=== PATIENT | female | born 1985 | race Caucasian/White ===

== ENCOUNTER → 2018-09-25 | Outpatient (CLI) | payer OTHER ==
[~2018-09-25] MED LIST: NORCO 5-325 TA1 EACH PO
== END | disposition home or self-care (01) ==
LOC: US 09:55
DX: K81.0 Acute cholecystitis (principal); R10.11 Right upper quadrant pain

== ENCOUNTER → 2018-10-12 | Day surgery (SDC) | payer OTHER ==
[2018-10-02 09:51] VITALS: BP 134/87
[2018-10-04 11:54] LABS: BASO # 0.1 10*3/uL (0.0-0.1); BASO % 0.7 % (0.0-1.0); EOS # 0.2 10*3/uL (0.0-0.4); EOS % 1.7 % (1.0-4.0); LYMPH # 3.4 10*3/uL (1.3-4.4); MEAN CELL VOLUME 89.4 fl (81.0-99.0); MEAN CORPUSCULAR HGB 29.1 pg (27.0-31.0); MEAN CORPUSCULAR HGB CONC 32.6 g/dl (33.0-37.0); MEAN PLATELET VOLUME 11.1 fl (9.6-12.3); MONO # 0.6 10*3/uL (0.1-1.0); MONO % 5.1 % (3.0-9.0); NEUT # 7.3 10*3/uL (2.3-7.9); NEUT % 63.2 % (47.0-73.0); PLATELET COUNT AUTOMATED 304 10*3/uL (130-400); RED BLOOD COUNT 4.81 10*6/uL (4.10-5.10); WHITE BLOOD COUNT 11.6 10*3/uL (4.8-10.8)
[2018-10-04 12:13] LABS: BILIRUBIN NEGATIVE (NEGATIVE); BLOOD NEGATIVE (NEGATIVE); CLARITY CLOUDY (CLEAR); COLOR YELLOW (YELLOW); GLUCOSE NEGATIVE (NEGATIVE); KETONE NEGATIVE (NEGATIVE); LEUKO ESTERASE TRACE (NEGATIVE); NITRITE POSITIVE (NEGATIVE); SPECIFIC GRAVITY 1.025 (1.005-1.030); UROBILINOGEN 0.2 E.U./dl (0.2-1.0)
[2018-10-04 12:27] LABS: ALBUMIN 3.7 gm/dl (3.1-4.5); ALKALINE PHOSPHATASE 120 U/L (45-117); BILIRUBIN, DIRECT 0.1 mg/dL (0.0-0.2); BUN 17 mg/dl (7-24); CHLORIDE 103 mmol/L (98-107); CREATININE 0.69 mg/dL (0.55-1.02); POTASSIUM 3.6 mmol/L (3.5-5.1); SGOT/AST 27 IU/L (3-35); SGPT/ALT 37 U/L (12-78); SODIUM 138 mmol/L (136-145); TOTAL PROTEIN 7.8 gm/dL (6.4-8.2)
[2018-10-04 12:34] LABS: ACT PARTIAL THROMBO TIME 26.7 SECONDS (20.0-32.1)
[2018-10-04 13:40] LABS: EPITHELIAL CELLS 21-30; WBC 16-20 wbc/hpf (0-5)
[2018-10-04 13:41] LABS: BACTERIA 3+
[2018-10-12] VITALS (7 sets, daily range): BP systolic 104–126; BP diastolic 69–96
[~2018-10-12] VITALS: Ht 165.1 cm; Wt 57.2 kg
--- NOTE | ~2018-10-12 | O ---
[place], [place] OPERATIVE NOTE NAME: [id number] UNIT #: [id number] ROOM: DOCTOR: LUIS LIMON MD BIRTHDATE: [birth year] DOS: 10/12/2018 PREOPERATIVE DIAGNOSIS: Chronic cholecystitis. POSTOPERATIVE DIAGNOSIS: Chronic cholecystitis. PROCEDURE: Laparoscopic cholecystectomy. SURGEON: Luis Limon MD SENIOR IT ARCHITECT: GAGAN. ANESTHESIA: General with endotracheal intubation. INDICATIONS: This is a 33-year-old lady with a history of chronic cholecystitis who is here for the above-mentioned procedure. The procedure and its complications were explained to the patient in detail preoperatively. Complications that were discussed included but were not limited to bleeding, infection, hematoma/seroma/abscess formation, prolonged postoperative pain, damage to lying vital structures, inadvertent injury to common bile duct, and incisional hernia formation. She agreed to proceed. DESCRIPTION OF PROCEDURE: After identifying the patient, the patient was brought to the operating suite and laid in the supine position. After induction of general anesthesia, the parts were painted and draped in the usual sterile fashion and right upper quadrant incision was marked. Skin and the subcutaneous tissue was incised below the umbilicus in a transverse fashion. This was done after a time-out procedure was done in the usual fashion. The skin and the subcutaneous tissue were incised. There was found to be a small umbilical hernia, which incorporated the incision made in the fascia in order to get into the peritoneal cavity. A pneumoperitoneum was created after 12 mm Ifrah port was introduced. Under direct vision, an epigastric incision and two 5 mm incision were made in the right upper quadrant. Appropriate size ports were introduced. The gallbladder was retracted superiorly and laterally. The cystic duct and the cystic artery were carefully dissected till the critical view of safety was obtained and the triangle of Calot was identified. Thereafter, each of the structures were clipped 3 times and cut between the first and the second clip. The gallbladder was then removed from the bed of the gallbladder and placed in an EndoCatch bag and removed from the peritoneal cavity and sent for histopathological diagnosis. Hemostasis was confirmed in the liver bed. Thereafter, the right upper quadrant and epigastric ports were removed and there was no bleeding seen. The umbilical port was also removed and the 2 stay sutures were tied together and an additional 0 Vicryl suture was taken to close the defect. The edges of the skin were then approximated after infiltrating them with 1% plain lidocaine and approximating with 4-0 Vicryl in a subcuticular fashion. Dressing was placed. The patient tolerated the procedure well. There were no complications. She was extubated uneventfully and brought back to the recovery room in stable fashion. Dr. Luis Limon, the attending surgeon, was present throughout the operating case. [place], [place] OPERATIVE NOTE NAME: ANDREW JENNINGS Luigi UNIT #: [id number] ROOM: DOCTOR: LUIS LIMON MD BIRTHDATE: [birth year] Luis Limon MD CM:OPRECORD:OPERATIVE NOTE [id number] LUIS LIMON MD 10/12/18 1159 interface
== END | disposition home or self-care (01) ==
LOC: SDC 09-29 14:00
PROVIDERS: Surgery
DX: K81.1 Chronic cholecystitis (principal); K42.9 Umbilical hernia without obstruction or gangrene; J45.909 Unspecified asthma, uncomplicated; F41.9 Anxiety disorder, unspecified; F32.9 Major depressive disorder, single episode, unspecified; F17.210 Nicotine dependence, cigarettes, uncomplicated; Z98.890 Other specified postprocedural states